=== PATIENT | female | born 1990 | race Caucasian/White ===

== ENCOUNTER 2017-12-04 12:07 | Emergency (ER) | payer OTHER ==
[~2017-12-04] VITALS: Ht 162.6 cm; Wt 76.7 kg
[2017-12-04 12:12] VITALS: BP 132/79
--- NOTE | 2017-12-04 12:37 | NUR ---
patient ambulated to bed 12
--- NOTE | 2017-12-04 12:42 | NUR ---
27F BIB BOYFRIEND C/O DIZZINESS X 3 DAYS. PT STATES NO TRAUMA OR INJURY TO HEAD AT THIS TIME. PT AA&OX4, PERRLA, C/O INTERMITTENT BLURRY VISION, BUT STATES ABLE TO SEE AT THIS TIME; PT C/O 1 EPISODE OF VOMITING TODAY, WITH 1 EPISODE OF DIARRHEA TODAY; ABDOMEN SOFT, NON-TENDER, ACTIVE BOWEL SOUNDS X 4 QUADRANTS; BL LUNG SOUNDS CLEAR, RR EVEN/UNLABORED, SKIN IS WARM/DRY/INTACT; STEADY GAIT; PT RESTING IN BED WITH HOB ELEVATED AND IN LOWEST POSITION; POSITIONED FOR COMFORT; ER MD MADE AWARE OF STATUS. WILL CONTINUE TO MONITOR.
[2017-12-04] MEDS ORDERED: KETOROLAC 30 MG/ML VIAL IM ONE (13:15)
[2017-12-04 13:53] LABS: BARBITURATE, URINE NEG. ng/ml (NEG <=200); BENZODIAZEPINE, URINE NEG. ng/mL (NEG <=200); CANNABINOID, URINE NEG. ng/mL (NEG <=50); COCAINE, URINE NEG. ng/mL (NEG <=300); OPIATE, URINE NEG. ng/mL (NEG <=2000); PHENCYCLIDINE SCREEN,URINE NEG. ng/mL (NEG <=25)
--- NOTE | 2017-12-04 14:08 | NUR ---
Patient transferred to [facility] for further care. RN evaluating patient.
[2017-12-04 14:29] LABS: BASOPHILS # (AUTO) 0.2 K/uL (0.00-0.22); HEMATOCRIT 42.7 % (36-48); LYMPHOCYTES # (AUTO) 1.3 K/uL (2.5-16.5); MEAN CORPUSCULAR HEMOGLOBIN 30 pg (27-31); MEAN CORPUSCULAR HGB CONC 33 g/dL (33-37); MEAN CORPUSCULAR VOLUME 90 fL (80-94); MONOCYTES # (AUTO) 0.3 K/uL (0.8-1.0); NEUTROPHILS # (AUTO) 2.3 K/uL (1.8-7.7); PLATELET COUNT (AUTO) 151 K/uL (140-450); RED BLOOD CELL COUNT(AUTO) 4.72 MIL/uL (4.20-5.40); RED CELL DISTRIBUTION WIDTH 12.7 % (11.6-13.7); WHITE BLOOD COUNT (AUTO) 4.1 K/uL (4.8-10.8)
[2017-12-04 14:39] LABS: ANION GAP 12.9 (8-16); CARBON DIOXIDE 26.6 mmol/L (21-32); CREATININE 0.7 mg/dL (0.6-1.3); POTASSIUM 4.5 mmol/L (3.5-5.1)
[2017-12-04 15:18] VITALS: BP 128/81
== END 2017-12-04 15:17 | disposition home or self-care (01) ==
LOC: MED 12:07
DX: R42 Dizziness and giddiness (principal); R50.9 Fever, unspecified; J02.9 Acute pharyngitis, unspecified; F41.9 Anxiety disorder, unspecified
CPT/HCPCS: 36415; 80048; 80305; 81002; 81025; 85025; 93005; 96372; 99285; J1885

== ENCOUNTER 2019-07-31 11:12 | Emergency (ER) | payer OTHER ==
[~2019-07-31] VITALS: Ht 162.6 cm; Wt 80.7 kg
[2019-07-31 11:25] VITALS: BP 110/73
--- NOTE | 2019-07-31 11:29 | NUR ---
PT AMBULATED TO LOBBY
--- NOTE | 2019-07-31 15:25 | NUR ---
PT AMBULATED TO ER CHAIR A
--- NOTE | 2019-07-31 15:42 | NUR ---
c/o left ankle pain s/p mechanical fall while dancing 3 days ago---c/o pain with full weight bearing ambulatory with steady gait
[2019-07-31 17:29] VITALS: BP 117/71
--- NOTE | 2019-07-31 17:29 | NUR ---
Patient discharged with v/s stable. Written and verbal after care instructions given and explained. Patient verbalized understanding. Ambulatory with CRUTCHES to car. All questions addressed prior to discharge. Advised to follow up with PMD.
== END 2019-07-31 17:29 | disposition home or self-care (01) ==
LOC: MED 11:12
DX: S93.402A Sprain of unspecified ligament of left ankle, initial encounter (principal); F41.9 Anxiety disorder, unspecified; F32.9 Major depressive disorder, single episode, unspecified; X50.1XXA Overexertion from prolonged static or awkward postures, initial encounter; Y93.41 Activity, dancing; Y92.89 Other specified places as the place of occurrence of the external cause; Y99.8 Other external cause status
CPT/HCPCS: 73610; 99283

== ENCOUNTER 2021-03-19 13:30 | Emergency (ER) | payer OTHER ==
[~2021-03-19] VITALS: Ht 175.3 cm; Wt 81.6 kg
[2021-03-19 13:35] VITALS: BP 115/76
--- NOTE | 2021-03-19 13:40 | NUR ---
PT AMB TO BED 1.
--- NOTE | 2021-03-19 14:05 | NUR ---
Pt bib self for vaginal bleeding. Per pt she is 7 weeks , G2, P1. Last menstrual period 01/22/21. Pt receiving care. LEONARDO 10/23/21. On Saturday pt noticed spotting. Today when pt got out of bed she had severe lower back pain and abdominal pain, followed by clear fluid. Pt reports having a large amount of blood that came out. Pt denies any pain at this time. Pain level 0/10. Pt seen at hospital last week and dx with UTI. Pt continuing to take antibiotics for treatment. Allergies: NKA Med hs: none
[2021-03-19 14:13] LABS: BASOPHILS % (AUTO) 0.4 % (0.0-2.0); EOSINOPHILS # (AUTO) 0.1 K/uL (0-0.4); EOSINOPHILS % (AUTO) 1.8 % (0.0-4.0); HEMOGLOBIN 12.4 g/dL (12.0-16.0); LYMPHOCYTES # (AUTO) 1.6 K/uL (2.5-16.5); LYMPHOCYTES % (AUTO) 19.3 % (20.5-51.1); MEAN CORPUSCULAR HEMOGLOBIN 32 pg (27-31); MEAN CORPUSCULAR HGB CONC 34 g/dL (33-37); MEAN CORPUSCULAR VOLUME 93.8 fL (80-94); MONOCYTES # (AUTO) 0.4 K/uL (0.8-1.0); MONOCYTES % (AUTO) 5.5 % (1.7-9.3); NEUTROPHILS # (AUTO) 5.9 K/uL (1.8-7.7); PLATELET COUNT (AUTO) 196 K/uL (140-450); RED BLOOD CELL COUNT(AUTO) 3.95 MIL/uL (4.20-5.40); RED CELL DISTRIBUTION WIDTH 14.1 % (11.6-13.7); WHITE BLOOD COUNT (AUTO) 8.1 K/uL (4.8-10.8)
--- NOTE | 2021-03-19 14:20 | NUR ---
Pt ambulated to restroom to provide urine sample
[2021-03-19 14:27] LABS: ALBUMIN 3.2 g/dL (3.4-5.0); ANION GAP 12.5 (8-16); CARBON DIOXIDE 25.3 mmol/L (21-32); CREATININE 0.7 mg/dL (0.6-1.3); POTASSIUM 3.8 mmol/L (3.5-5.1); TOTAL BILIRUBIN 0.3 mg/dL (0.0-1.0)
[2021-03-19 14:50] LABS: BILIRUBIN,URINE NEGATIVE (NEGATIVE); BLOOD, URINE 3+ (NEGATIVE); LEUKOCYTE ESTERASE ,URINE NEGATIVE (NEGATIVE); NITRITE, URINE NEGATIVE (NEGATIVE); UGLUCOSE NEGATIVE (NEGATIVE)
--- NOTE | 2021-03-19 15:00 | NUR ---
Pt updated on plan care
[2021-03-19 15:08] LABS: APPEARANCE,URINE CLEAR (CLEAR); COLOR,URINE SLIGHT BLOODY (YELLOW)
[2021-03-19 15:10] LABS: RBC,URINE TOO NUMEROUS TO COUN /HPF (0-5); WBC,URINE 0-5 /HPF (0-5)
--- NOTE | 2021-03-19 16:04 | NUR ---
Patient discharged with v/s stable. Written and verbal after care instructions given and explained. Patient verbalized understanding. Ambulatory with steady gait. All questions addressed prior to discharge. Advised to follow up in 2-4 days for HCg level.
[2021-03-19 16:07] VITALS: BP 115/76
== END 2021-03-19 16:04 | disposition home or self-care (01) ==
LOC: MED 13:30
DX: O20.0 Threatened abortion (principal); D64.9 Anemia, unspecified
CPT/HCPCS: 36415; 76817; 80053; 81001; 84702; 85025; 86900; 86901; 87086; 99283; 99284

== ENCOUNTER 2021-03-21 04:25 | Emergency (ER) | payer OTHER ==
[~2021-03-21] VITALS: Ht 162.6 cm; Wt 81.6 kg
[2021-03-21 04:27] VITALS: BP 103/66
--- NOTE | 2021-03-21 04:40 | NUR ---
ERMD AT BEDSIDE.
--- NOTE | 2021-03-21 04:53 | NUR ---
PATIENT BIB SELF FOR C/O 07/11 PELVIC PAIN AND CRAMPING. PATIENT REPORTS SHE IS 8 WEEKS . A & O X4. PATIENT REPORTS "I WAS HERE ON THE WEEKEND FOR BLEEDING, BUT NOW IM CRAMPING." PATIENT REPORTS SHE IS SOAKING HER PAD Q 3 HOURS, PATIENT REPORTS "IM NOT BLEEDING MUCH I WAS YESTERDAY." PATIENT REPORTS PASSING MULTIPLE PEA SIZE CLOTS. SKIN IS WARM, DRY AND INTACT. PATIENT DENIES CP, SOB, FEVER, CHILLS. SEE COMPLETE ASSESSMENT FOR FURTHER DETAILS. MED HX: ANEMIA ALLERGIES: NKA
--- NOTE | 2021-03-21 05:01 | NUR ---
PATIENT AMBULATED TO RESTROOM WITH STEADY GAIT.
--- NOTE | 2021-03-21 05:11 | NUR ---
LABS DRAWN FROM 20 G IV TO RAC, HAND GIVEN TO CANDI STEEL SASH ERECTOR.
[2021-03-21 05:20] LABS: BASOPHILS % (AUTO) 0.4 % (0.0-2.0); EOSINOPHILS # (AUTO) 0.2 K/uL (0-0.4); HEMATOCRIT 36.9 % (36-48); HEMOGLOBIN 12.2 g/dL (12.0-16.0); LYMPHOCYTES # (AUTO) 2.6 K/uL (2.5-16.5); LYMPHOCYTES % (AUTO) 31.7 % (20.5-51.1); MEAN CORPUSCULAR HEMOGLOBIN 31 pg (27-31); MEAN CORPUSCULAR HGB CONC 33 g/dL (33-37); MEAN CORPUSCULAR VOLUME 94.3 fL (80-94); MONOCYTES # (AUTO) 0.5 K/uL (0.8-1.0); MONOCYTES % (AUTO) 5.9 % (1.7-9.3); PLATELET COUNT (AUTO) 205 K/uL (140-450); RED BLOOD CELL COUNT(AUTO) 3.91 MIL/uL (4.20-5.40); RED CELL DISTRIBUTION WIDTH 14.2 % (11.6-13.7); WHITE BLOOD COUNT (AUTO) 8.4 K/uL (4.8-10.8)
[2021-03-21] MEDS ORDERED: IBUP-2213 PO (06:14)
--- NOTE | 2021-03-21 06:23 | NUR ---
ERMD AT BEDSIDE DISCUSSING PATIENT CARE.
[2021-03-21 06:27] VITALS: BP 103/66
== END 2021-03-21 06:27 | disposition home or self-care (01) ==
LOC: MED 04:25
DX: O03.9 Complete or unspecified spontaneous abortion without complication (principal); Z79.899 Other long term (current) drug therapy
CPT/HCPCS: 36415; 84702; 85025; 99283

== ENCOUNTER 2021-09-22 05:05 | Emergency (ER) | payer OTHER ==
[~2021-09-22] VITALS: Ht 165.1 cm; Wt 77.1 kg
[~2021-09-22 05:05] MED LIST: IBUP-2213 PO
[2021-09-22 05:10] VITALS: BP 129/90
--- NOTE | 2021-09-22 05:10 | NUR ---
TI BED AMBULATORY
--- NOTE | 2021-09-22 05:19 | NUR ---
patient c/o difficulty breathing starting yesterday. patient took benadryl and robitussin with no relief. Audible wheezes and crackles heard without use of stethoscope, patient sound congested. patient has dry non productive cough. pt desaturated to 87% RA with movement and speaking. patient +N. Denies v/d, c/p, and shortness of breath. AAOx4. GCS15. ERMD made aware. PMH: anemia, anxiety nka
[2021-09-22] MEDS ORDERED: ALBUTEROL 0.083% 2.5 MG/3 ML NEBU INH ONE (05:20)
[2021-09-22] MEDS ORDERED: KETOROLAC 60 MG/2 ML VIAL IM ONE (05:20)
[2021-09-22] MEDS ORDERED: ALBUTEROL SULFATE/IPRATROPIU 3 ML SOL IH ONE (05:20)
[2021-09-22] MEDS ORDERED: predniSONE 20 MG TAB PO ONE (05:20)
--- NOTE | 2021-09-22 05:24 | NUR ---
Called for respiratory for tx
--- NOTE | 2021-09-22 05:31 | NUR ---
Dr. Figueroa examining patient.
--- NOTE | 2021-09-22 05:36 | NUR ---
Respiratory Therapist at bedside for respiratory intervention.
[2021-09-22] MEDS ORDERED: ALBU0.0912 IH (05:57)
[2021-09-22] MEDS ORDERED: PRED20TA5 PO (05:57)
--- NOTE | 2021-09-22 06:00 | NUR ---
sent swab of pcr to lab, received by patricia lab manager
[2021-09-22 06:31] VITALS: BP 130/90
--- NOTE | 2021-09-22 06:31 | NUR ---
Patient discharged with v/s stable. Written and verbal after care instructions given and explained. Patient alert, oriented and verbalized understanding of instructions. Ambulatory with steady gait. All questions addressed prior to discharge. ID band removed. Patient advised to follow up with PMD. Rx of proventil hfa mdi, and deltasone given. Patient educated on indication of medication including possible reaction and side effects. Opportunity to ask questions provided and answered.
== END 2021-09-22 06:31 | disposition home or self-care (01) ==
LOC: MED 05:05
DX: R06.02 Shortness of breath (principal); Z20.822 Contact with and (suspected) exposure to COVID-19; R05.9 Cough, unspecified; R50.9 Fever, unspecified; D64.9 Anemia, unspecified; Z79.899 Other long term (current) drug therapy
CPT/HCPCS: 94640; 96372; 99283; J1885; J7512; J7613; U0003

== ENCOUNTER 2021-10-17 21:20 | Emergency (ER) | payer OTHER ==
[~2021-10-17] VITALS: Ht 162.6 cm; Wt 77.1 kg
[~2021-10-17 21:20] MED LIST changes: +ALBU0.0912 IH; +PRED20TA5 PO
[2021-10-17 21:34] VITALS: BP 119/75
--- NOTE | 2021-10-17 21:50 | NUR ---
TO RADIOLOGY VIA W/C
--- NOTE | 2021-10-17 22:55 | NUR ---
PT SEEN AND EVALUATED BY DR. JAVIER. NO NURSING INTERVENTIONS PROVIDED.
[2021-10-17] MEDS ORDERED: ACET-10509 PO (23:24)
[2021-10-17] MEDS ORDERED: IBUP-2230 PO (23:24)
--- NOTE | 2021-10-17 23:46 | NUR ---
Patient discharged with v/s stable. Written and verbal after care instructions given and explained. Patient alert, oriented and verbalized understanding of instructions. Ambulatory with steady gait. All questions addressed prior to discharge. ID band removed. Patient advised to follow up with PMD. Rx of MOTRIN AND TYLENOL given. Patient educated on indication of medication including possible reaction and side effects. Opportunity to ask questions provided and answered.
== END 2021-10-17 23:46 | disposition home or self-care (01) ==
LOC: MED 21:20
DX: S92.312A Displaced fracture of first metatarsal bone, left foot, initial encounter for closed fracture (principal); Z79.899 Other long term (current) drug therapy; X58.XXXA Exposure to other specified factors, initial encounter; Y93.41 Activity, dancing; Y92.89 Other specified places as the place of occurrence of the external cause; Y99.8 Other external cause status
CPT/HCPCS: 29515; 73630; 99283

== ENCOUNTER 2021-11-25 21:00 | Emergency (ER) | payer OTHER ==
[~2021-11-25] VITALS: Ht 162.6 cm; Wt 77.1 kg
[~2021-11-25 21:00] MED LIST changes: +ACET-10509 PO; +IBUP-2230 PO
[2021-11-25 21:04] VITALS: BP 137/79
--- NOTE | 2021-11-25 21:04 | NUR ---
TO BED AMBULATORY
[2021-11-25] MEDS ORDERED: LORazepam 2 MG/ML VIAL IM ONE (21:45)
--- NOTE | 2021-11-25 21:45 | NUR ---
pt found by staff on ground seizing, tonic clonic lasting approx 1 minute. pt post ictal. no urinary incontinence no oral trauma. IV inserted to left hand #[id number]. seizure precautions initiate. medicated per order.
[2021-11-25] MEDS ORDERED: LORazepam 2 MG/ML VIAL ONE (21:46)
--- NOTE | 2021-11-25 22:02 | NUR ---
PT TAKEN TO CT
--- NOTE | 2021-11-25 22:20 | NUR ---
pt aox4 per pt takes xanax 2mg daily x1 year. pt has been out of xanax x2 days, came to er for anxiety attack. denies any hx of seizure or medical problems. seizure precautions maintained.
[2021-11-25 23:27] LABS: BASOPHILS % (AUTO) 0.2 % (0.0-2.0); EOSINOPHILS # (AUTO) 0.2 K/uL (0-0.4); EOSINOPHILS % (AUTO) 2.3 % (0.0-4.0); HEMOGLOBIN 12.9 g/dL (12.0-16.0); LYMPHOCYTES # (AUTO) 0.6 K/uL (2.5-16.5); LYMPHOCYTES % (AUTO) 6.1 % (20.5-51.1); MEAN CORPUSCULAR HEMOGLOBIN 31 pg (27-31); MEAN CORPUSCULAR HGB CONC 34 g/dL (33-37); MEAN CORPUSCULAR VOLUME 90.8 fL (80-94); MONOCYTES # (AUTO) 0.4 K/uL (0.8-1.0); MONOCYTES % (AUTO) 3.8 % (1.7-9.3); NEUTROPHILS # (AUTO) 8.6 K/uL (1.8-7.7); PLATELET COUNT (AUTO) 200 K/uL (140-450); RED BLOOD CELL COUNT(AUTO) 4.18 MIL/uL (4.20-5.40); RED CELL DISTRIBUTION WIDTH 14.1 % (11.6-13.7); WHITE BLOOD COUNT (AUTO) 9.8 K/uL (4.8-10.8)
[2021-11-25 23:47] LABS: ALBUMIN 3.1 g/dL (3.4-5.0); ANION GAP 10.8 (8-16); CARBON DIOXIDE 25.3 mmol/L (21-32); CREATININE 0.8 mg/dL (0.6-1.3); NEUTROPHILS % (AUTO) 87.6 % (42.2-75.2); POTASSIUM 4.1 mmol/L (3.5-5.1); TOTAL BILIRUBIN 0.2 mg/dL (0.0-1.0)
--- NOTE | 2021-11-26 00:48 | NUR ---
Patient discharged with v/s stable. Written and verbal after care instructions given and explained. Patient verbalized understanding. Ambulatory with steady gait. All questions addressed prior to discharge. Advised to follow up with PMD.
--- NOTE | 2021-11-26 00:50 | NUR ---
pt being dc without any rx, spoke to MD regarding rx for xanax d/t pt withdraw and seizure. Dr Cummings states she does not rx that medication and pt needs to f/u with pcp for refill. pt made aware and pt verbalizes dc instructions.
[2021-11-26 00:51] VITALS: BP 110/65
== END 2021-11-26 00:48 | disposition home or self-care (01) ==
LOC: MED 21:00
DX: R56.9 Unspecified convulsions (principal); F13.239 Sedative, hypnotic or anxiolytic dependence with withdrawal, unspecified; F41.9 Anxiety disorder, unspecified
CPT/HCPCS: 36415; 70450; 80053; 82550; 85025; 96372; 99284; J2060

== ENCOUNTER 2022-08-06 13:18 | Emergency (ER) | payer OTHER ==
[~2022-08-06] VITALS: Ht 162.6 cm; Wt 84.4 kg
[2022-08-06 13:38] VITALS: BP 110/66
--- NOTE | 2022-08-06 13:48 | NUR ---
Lindsey nails in [facility] - 08/06/22 at 1349 by MEDINEZ AMBULATED TO ER BED 5
[2022-08-06] MEDS ORDERED: PANTOPRAZOLE 40 MG TABEC PO ONE (15:30)
[2022-08-06] MEDS ORDERED: ONDANSETRON 4 MG ODT PO ONE (15:30)
[2022-08-06] MEDS ORDERED: FAMOTIDINE 20 MG TAB PO ONE (15:30)
[2022-08-06] MEDS ORDERED: DICYCLOMINE HCL LIQUID 20 MG, ALUMINUM HYD/MAG/SIMETHICONE 30 ML, LIDOCAINE VISCOUS 2% ... PO ONE ×3 (15:30)
--- NOTE | 2022-08-06 15:30 | NUR ---
32 y/o female bib self from home, c/o bloody emesis after drinking large amount of alcohol yesterday, unable to specify amount or type. pt states she does not feel intoxicated still. states she woke up this morning and has pain in her tosils and nares, states they appear inflammed. area does appear red and swollen bl sides. a&ox4, ambluates with steady gait. pmh: asthma, anemia nka
[2022-08-06] MEDS ORDERED: DICYCLOMINE HCL LIQUID 10 MG/5 ML UDC ONE (15:36)
[2022-08-06] MEDS ORDERED: ALUMINUM HYD/MAG/SIMETHICONE 30 ML UDC ONE (15:36)
--- NOTE | 2022-08-06 15:47 | NUR ---
kirby and strep swabbed at this time
[2022-08-06 15:56] LABS: BASOPHILS # (AUTO) 0.1 K/uL (0.00-0.22); BASOPHILS % (AUTO) 0.6 % (0.0-2.0); EOSINOPHILS # (AUTO) 0.1 K/uL (0-0.4); EOSINOPHILS % (AUTO) 1.5 % (0.0-4.0); HEMATOCRIT 39.7 % (36-48); HEMOGLOBIN 13.3 g/dL (12.0-16.0); LYMPHOCYTES # (AUTO) 2.6 K/uL (2.5-16.5); LYMPHOCYTES % (AUTO) 28.3 % (20.5-51.1); MEAN CORPUSCULAR HEMOGLOBIN 31 pg (27-31); MEAN CORPUSCULAR HGB CONC 33 g/dL (33-37); MEAN CORPUSCULAR VOLUME 91.7 fL (80-94); MONOCYTES # (AUTO) 0.5 K/uL (0.8-1.0); MONOCYTES % (AUTO) 5.8 % (1.7-9.3); NEUTROPHILS # (AUTO) 5.9 K/uL (1.8-7.7); NEUTROPHILS % (AUTO) 63.8 % (42.2-75.2); PLATELET COUNT (AUTO) 190 K/uL (140-450); RED BLOOD CELL COUNT(AUTO) 4.33 MIL/uL (4.20-5.40); RED CELL DISTRIBUTION WIDTH 13.5 % (11.6-13.7); WHITE BLOOD COUNT (AUTO) 9.2 K/uL (4.8-10.8)
[2022-08-06 16:11] LABS: ANION GAP 13.9 (8-16); CARBON DIOXIDE 25.1 mmol/L (21-32); CREATININE 0.8 mg/dL (0.6-1.3)
[2022-08-06 16:17] LABS: TOTAL BILIRUBIN 0.2 mg/dL (0.0-1.0)
[2022-08-06] MEDS ORDERED: AMOX1TAB8 PO ×2 (16:39→16:58)
[2022-08-06] MEDS ORDERED: PANT40EC PO ×2 (16:39→16:58)
[2022-08-06] MEDS ORDERED: FAMO-90 PO ×2 (16:39→16:58)
--- NOTE | 2022-08-06 17:01 | NUR ---
pt reswabbed with correct red tubes at this time for kirby and strep
[2022-08-06 17:08] VITALS: BP 110/66
--- NOTE | 2022-08-06 17:08 | NUR ---
Patient discharged with v/s stable. Written and verbal after care instructions given and explained. Patient alert, oriented and verbalized understanding of instructions. Ambulatory with steady gait. All questions addressed prior to discharge. ID band removed. Patient advised to follow up with PMD. Rx of amoxicillin, famotidine, protonix (sent) given. Patient educated on indication of medication including possible reaction and side effects. Opportunity to ask questions provided and answered.
== END 2022-08-06 17:08 | disposition home or self-care (01) ==
LOC: MED 13:18
DX: K29.21 Alcoholic gastritis with bleeding (principal); J02.9 Acute pharyngitis, unspecified; Z20.822 Contact with and (suspected) exposure to COVID-19; R59.0 Localized enlarged lymph nodes; J45.909 Unspecified asthma, uncomplicated; F41.9 Anxiety disorder, unspecified; Z86.2 Personal history of diseases of the blood and blood-forming organs and certain disorders involving the immune mechanism; Z79.899 Other long term (current) drug therapy; Z79.2 Long term (current) use of antibiotics; Z79.1 Long term (current) use of non-steroidal anti-inflammatories (NSAID)
CPT/HCPCS: 36415; 80053; 81002; 81025; 83690; 85025; 87081; 99284; Q0162